=== PATIENT | male | born 1965 | race African-American/Black ===

== ENCOUNTER 2020-07-28 11:40 | Emergency (ER) | payer SELFPAY ==
[2020-07-28 13:04] LABS: ALT (SGPT) 16 U/L (8-55); AST (SGOT) 18 U/L (5-34); Albumin 3.9 g/dL (3.5-5.0); Alkaline Phosphatase 61 U/L (40-110); Anion Gap 14 mmol/L (10-20); BUN (Urea Nitrogen) 12 mg/dL (8.4-25.7); Bilirubin, Total 0.8 mg/dL (0.2-1.2); Calc. Creatinine Clearance 0 mL/min (70-130); Calcium 8.7 mg/dL (7.8-10.44); Carbon Dioxide 24 mmol/L (22-29); Chloride 105 mmol/L (98-107); Globulin 3.3 g/dL (2.4-3.5); Glucose 147 mg/dL (70-105); Potassium 3.7 mmol/L (3.5-5.1); Protein, Total 7.2 g/dL (6.0-8.3); Sodium 139 mmol/L (136-145)
[2020-07-28 13:13] LABS: Bilirubin Negative (Negative); Blood, Urine Negative (Negative); Clarity Clear (Clear); Glucose, Urine (Dipstick) Negative (Negative); Ketone, Urine Negative (Negative); Leukocyte Negative (Negative); Nitrite Negative (Negative); Protein, Urine (Dipstick) Negative (Neg-Trace); Specific Gravity, Urine 1.025 (1.005-1.030); Urobilinogen 0.2 mg/dL (Less than 2); pH, Urine 5.5 (5.0-9.0)
[2020-07-28 13:23] LABS: Hemoglobin 12.7 g/dL (14.0-18.0); Platelet Count 91 thou/uL (130-400); Red Blood Cell (RBC) Count 4.72 mill/uL (4.70-6.10); White Blood Cell (WBC) Count 5.6 thou/uL (4.8-10.8)
[2020-07-28 13:25] LABS: %Neutrophils 63.1 % (42.0-75.0)
[2020-07-28 13:26] LABS: #Basophils 0.1 thou/uL (0.0-0.2); #Eosinphils 0.2 thou/uL (0.0-0.7); #Lymphocytes 1.2 thou/uL (1.20-3.40); #Monocytes 0.5 thou/uL (0.11-0.59); #Neutrophils 3.4 thou/uL (1.40-6.50); %Basophils 1.2 % (0.0-1.0); %Eosinophils 3.4 % (0.0-10.0); %Lymphocytes 22.8 % (21.0-51.0); %Monocytes 9.4 % (0.0-10.0)
[2020-07-28] MEDS ORDERED: Clindamycin/D5W 600 mg/50 ml Premix Bag ONE (13:32)
== END 2020-07-28 15:56 | disposition short-term general hospital (02) ==
LOC: NAV ERS 11:40
DX: L03.115 Cellulitis of right lower limb (principal); R79.89 Other specified abnormal findings of blood chemistry
CPT/HCPCS: 36416; 80053; 81003; 83880; 85025; 85379; 87070; 87077; 87186; 87205; 96365; J3490

== ENCOUNTER 2021-12-07 11:29 | Outpatient (CLI) | payer OTHER | END 2021-12-07 11:30 | disposition home or self-care (01) | LOC: NAV RAD 11:29 | PROVIDERS: ATTEND Family Medicine | DX: M79.604 Pain in right leg (principal); M54.50 Low back pain, unspecified; M16.0 Bilateral primary osteoarthritis of hip; M47.816 Spondylosis without myelopathy or radiculopathy, lumbar region | CPT/HCPCS: 72100; 72170 ==

== ENCOUNTER 2022-09-19 10:13 | Emergency (ER) | payer OTHER ==
[2022-09-19] MEDS ORDERED: Acetaminophen 500 MG TAB ONE (10:40)
[2022-09-19] MEDS ORDERED: Sodium Chloride 0.9% 100 ML ONE (11:02)
[2022-09-19] MEDS ORDERED: cefTRIAXone (ROCEPHIN) 1 GM VIAL ONE (11:02)
[2022-09-19 11:15] LABS: ALT (SGPT) 12 U/L (8-55); AST (SGOT) 20 U/L (5-34); Albumin 3.4 g/dL (3.5-5.0); Alkaline Phosphatase 60 U/L (40-110); Anion Gap 14 mmol/L (10-20); BUN (Urea Nitrogen) 10 mg/dL (8.4-25.7); Bilirubin, Total 0.7 mg/dL (0.2-1.2); Calc. Creatinine Clearance 0 mL/min (70-130); Calcium 9.1 mg/dL (7.8-10.44); Carbon Dioxide 26 mmol/L (22-29); Chloride 101 mmol/L (98-107); Estimated GFR 101; Globulin 4.6 g/dL (2.4-3.5); Glucose 89 mg/dL (70-105); Potassium 3.9 mmol/L (3.5-5.1); Sodium 137 mmol/L (136-145)
[2022-09-19 11:21] LABS: #Basophils 0.1 thou/uL (0.0-0.2); #Eosinphils 0.1 thou/uL (0.0-0.7); #Lymphocytes 1.1 thou/uL (1.20-3.40); #Monocytes 0.6 thou/uL (0.11-0.59); %Basophils 1.5 % (0.0-1.0); %Eosinophils 1.9 % (0.0-10.0); %Lymphocytes 18.9 % (21.0-51.0); %Monocytes 9.4 % (0.0-10.0); %Neutrophils 68.4 % (42.0-75.0); Hemoglobin 9.2 g/dL (14.0-18.0); Mean Corpuscular Hemoglobin 24.9 pg (27.0-31.0); Mean Corpuscular Volume 80.4 fl (78.0-98.0); Mean Platelet Volume 10.4 fL (7.4-10.4); Platelet Count 161 10x3/uL (130-400); RBC Distribution Width 14.7 % (11.5-14.5); Red Blood Cell (RBC) Count 3.67 mill/uL (4.70-6.10); White Blood Cell (WBC) Count 5.8 10x3/uL (4.8-10.8)
== END 2022-09-19 12:08 | disposition home or self-care (01) ==
LOC: NAV ERS 10:13
DX: L03.113 Cellulitis of right upper limb (principal); R60.0 Localized edema; D64.9 Anemia, unspecified; E11.9 Type 2 diabetes mellitus without complications; E78.00 Pure hypercholesterolemia, unspecified; Z86.718 Personal history of other venous thrombosis and embolism; Z79.01 Long term (current) use of anticoagulants; Z79.84 Long term (current) use of oral hypoglycemic drugs; Z79.899 Other long term (current) drug therapy
CPT/HCPCS: 80053; 83605; 83880; 84484; 85025; 87040; 93005; 96365; J0696; J3490

== ENCOUNTER 2023-04-05 11:31 | Outpatient (CLI) | payer OTHER | END 2023-04-05 11:32 | disposition home or self-care (01) | LOC: NAV RAD 11:31 | PROVIDERS: ATTEND Student in an Organized Health Care Education/Training Program | DX: M25.511 Pain in right shoulder (principal); M25.512 Pain in left shoulder; M19.012 Primary osteoarthritis, left shoulder ==

== ENCOUNTER 2023-09-01 07:52 | Emergency (ER) | payer OTHER ==
[2023-09-01] MEDS ORDERED: Fluorescein Opthalmic Strip ONE (09:21)
[2023-09-01] MEDS ORDERED: Tetracaine 0.5% PF 4 ML BOT ONE (09:21)
[2023-09-01] MEDS ORDERED: Timolol 0.5% Ophth Soln 5 ml Bottle R EYE SCH (10:30)
[2023-09-01] MEDS ORDERED: Pilocarpine 1% Ophth Drops 15 ML BOT R EYE SCH (10:30)
[2023-09-01] MEDS ORDERED: Brimonidine Tartrate 0.2% Ophth Soln 5 ml Bottle R EYE SCH (10:45)
[2023-09-01] MEDS ORDERED: Pilocarpine 1% Ophth Drops 15 ML BOT ONE (10:49)
[2023-09-01] MEDS ORDERED: Dorzolamide HCl 2% Ophth (10 mL) Bottle ONE (10:49)
[2023-09-01] MEDS ORDERED: Timolol 0.5% Ophth Soln 5 ml Bottle ONE (10:49)
[2023-09-01] MEDS ORDERED: Brimonidine Tartrate 0.2% Ophth Soln 5 ml Bottle ONE (10:49)
== END 2023-09-01 11:36 | disposition short-term general hospital (02) ==
LOC: NAV ERS 07:52
DX: H40.9 Unspecified glaucoma (principal); E78.00 Pure hypercholesterolemia, unspecified; E11.9 Type 2 diabetes mellitus without complications; Z79.84 Long term (current) use of oral hypoglycemic drugs; Z79.899 Other long term (current) drug therapy
CPT/HCPCS: 99284

== ENCOUNTER 2024-02-25 14:52 | Emergency (ER) | payer OTHER ==
[~2024-02-25 14:52] MED LIST: Iopamidol 370 76% 100 ML VIAL ONE
[2024-02-25 16:25] LABS: ALT (SGPT) 9 U/L (8-55); AST (SGOT) 15 U/L (5-34); Albumin 4.5 g/dL (3.5-5.0); Alkaline Phosphatase 73 U/L (40-110); Anion Gap 15 mmol/L (10-20); BUN (Urea Nitrogen) 13 mg/dL (8.4-25.7); Bilirubin, Total 1.3 mg/dL (0.2-1.2); Calc. Creatinine Clearance 0 mL/min (70-130); Calcium 10.2 mg/dL (7.8-10.44); Carbon Dioxide 28 mmol/L (22-29); Chloride 105 mmol/L (98-107); Estimated GFR 86; Globulin 3.5 g/dL (2.4-3.5); Glucose 94 mg/dL (70-105); Potassium 3.7 mmol/L (3.5-5.1); Sodium 144 mmol/L (136-145)
[2024-02-25 16:28] LABS: Troponin I 0.012 ng/mL (< 0.028)
[2024-02-25] MEDS ORDERED: Acetaminophen 325 MG TAB ONE (16:35)
[2024-02-25 16:37] LABS: #Monocytes 0.5 thou/uL (0.11-0.59); #Neutrophils 3.1 thou/uL (1.40-6.50); %Basophils 1.1 % (0.0-1.0); %Eosinophils 0.6 % (0.0-10.0); %Lymphocytes 18.6 % (21.0-51.0); %Monocytes 11.1 % (0.0-10.0); %Neutrophils 68.7 % (42.0-75.0); Hematocrit 37.1 % (42.0-52.0); Hemoglobin 11.7 g/dL (14.0-18.0); Large Platelets MODERATE (None Seen); MDiff Complete? YES; Mean Corpuscular HGB CONC 31.4 g/dL (32.0-36.0); Mean Corpuscular Hemoglobin 26.5 pg (27.0-31.0); Mean Corpuscular Volume 84.2 fl (78.0-98.0); Platelet Adequacy Comment Appears Decreased; Red Blood Cell (RBC) Count 4.41 mill/uL (4.70-6.10); White Blood Cell (WBC) Count 4.5 10x3/uL (4.8-10.8)
[2024-02-25 16:38] LABS: Platelet Count 85 10x3/uL (130-400)
[2024-02-25] MEDS ORDERED: Sodium Chloride 0.9% 1,000 ML ONE (16:53)
[2024-02-25 17:12] LABS: Bilirubin Negative (Negative); Blood, Urine Negative (Negative); Glucose, Urine (Dipstick) Negative (Negative); Ketone, Urine 40 mg/dL (Negative); Leukocyte Negative (Negative); Nitrite Negative (Negative); Protein, Urine (Dipstick) 30 mg/dL (Neg-Trace); Urobilinogen 0.2 mg/dL (Less than 2); pH, Urine 5.5 (5.0-9.0)
[2024-02-25 17:13] LABS: Clarity Hazy (Clear)
[2024-02-25 17:19] LABS: CAUTI Indications for Culture Dysuria,urgency,freq; Squamous Epithelial 0-3 HPF (0-3); WBC/HPF 0-3 HPF (0-3)
[2024-02-25 17:20] LABS: Urine Culture Reflex No No
[2024-02-25] MEDS ORDERED: Aspirin Chewable 81 MG TAB ONE (19:07)
[2024-02-25] MEDS ORDERED: Nitroglycerin 2% Ointment 1 INCH/1 GM Packet ONE (19:07)
== END 2024-02-25 20:37 | disposition short-term general hospital (02) ==
LOC: NAV ERS 14:52
DX: R06.02 Shortness of breath (principal); D69.6 Thrombocytopenia, unspecified; E11.9 Type 2 diabetes mellitus without complications; Z79.84 Long term (current) use of oral hypoglycemic drugs
CPT/HCPCS: 71045; 71275; 80053; 81001; 83880; 84484; 85025; 85379; 87428; 93005; 94760; 96360; J7030; Q9967